=== PATIENT | male | born 1965 | race Caucasian/White ===

== ENCOUNTER 2021-07-01 15:15 | Emergency (ER) | payer OTHER ==
[~2021-07-01] VITALS: Ht 187.9 cm; Wt 172.4 kg
[2021-07-01] MEDS ORDERED: AMLODIPINE BESYL5 MG PO (15:24)
[2021-07-01] MEDS ORDERED: TRIAMTERENE-HC1 EACH PO (15:25)
== END 2021-07-01 19:32 | disposition home or self-care (01) ==
LOC: ED 15:15
DX: R05.9 Cough, unspecified (principal); Z20.822 Contact with and (suspected) exposure to COVID-19; R06.02 Shortness of breath; Z91.040 Latex allergy status; Z79.899 Other long term (current) drug therapy